=== PATIENT | male | born 1990 | race Two or more races ===

== ENCOUNTER 2023-11-27 17:42 | Emergency (ER) | payer SELFPAY ==
[2023-11-27 18:03] VITALS: BP 132/75; PULSE 65; RESP 18; TEMP 98; BMI 21.4
[2023-11-27] MEDS ORDERED: IBUPROFEN 600 MG TABLET (FP) PO ONE (19:34)
[2023-11-27] MEDS ORDERED: BACITRACIN ZINC 15 GM TUBE TOPICAL OINTMENT ONE (19:34)
[2023-11-27] MEDS: IBUPROFEN 600 MG TABLET (FP) PO ONE (19:36)
[2023-11-27] MEDS: BACITRACIN ZINC 15 GM TUBE TOPICAL OINTMENT TP ONE (19:36)
[2023-11-27] MEDS ORDERED: LIDOCAINE 4% PATCH TP ONE ×2 (20:06→20:09)
[2023-11-27] MEDS ORDERED: DIPHTH,PERTUSS(ACELL),TET 0.5 ML DISP.SYRIN IM ONE (20:10)
[2023-11-27] MEDS: DIPHTH,PERTUSS(ACELL),TET 0.5 ML DISP.SYRIN IM ONE (20:13)
== END 2023-11-27 20:29 | disposition home or self-care (01) ==
LOC: JERFT 17:42
PROC: 2W3SX1Z Immobilization of Right Foot using Splint (ICD-10-PCS; principal; 2023-11-27)
DX: S82.201A Unspecified fracture of shaft of right tibia, initial encounter for closed fracture (principal); V28.99XA Unspecified rider of other motorcycle injured in noncollision transport accident in traffic accident, initial encounter
CPT/HCPCS: 73560-TC-RT-FY; 73590-TC-RT-FY; 73610-TC-RT-FY; 73630-TC-RT-FY; 90715; 99284-25